=== PATIENT | female | born 1965 | race Caucasian/White ===

== ENCOUNTER → 2018-03-03 | Outpatient (CLI) | payer SELFPAY | LOC: LAB 11:26 | PROVIDERS: Family Medicine | DX: E05.00 Thyrotoxicosis with diffuse goiter without thyrotoxic crisis or storm (principal) ==

== ENCOUNTER → 2020-11-06 | Outpatient (CLI) | payer SELFPAY | LOC: RAD 07:51 | DX: K82.4 Cholesterolosis of gallbladder (principal); R19.8 Other specified symptoms and signs involving the digestive system and abdomen ==

== ENCOUNTER → 2021-03-25 | Outpatient (CLI) | payer SELFPAY ==
[2021-03-25 11:00] LABS: HEMATOCRIT 42.4 % (37.0-47.0); HEMOGLOBIN 13.9 g/dL (12.5-16.0); MEAN PLATELET VOLUME 10.5 fl (7.4-10.4); RED BLOOD COUNT 4.69 M/mm3 (4.10-5.30); RED CELL DISTRIBUTION WIDTH 12.9 % (11.5-14.5); WHITE BLOOD COUNT 5.3 K/mm3 (4.8-10.8)
[2021-03-25 11:04] LABS: ALBUMIN 4.2 g/dL (3.5-5.0); POTASSIUM 5.2 mmol/L (3.5-5.1)
[2021-03-25 11:05] LABS: CALCIUM 9.7 mg/dL (8.3-10.5)
[2021-03-25 11:06] LABS: TOTAL PROTEIN 7.6 g/dL (6.4-8.3)
[2021-03-25 11:08] LABS: TOTAL BILIRUBIN 0.7 mg/dL (0.2-1.2)
== END ==
LOC: LAB 10:33
PROVIDERS: Nurse Practitioner
DX: I10 Essential (primary) hypertension (principal); K31.819 Angiodysplasia of stomach and duodenum without bleeding